=== PATIENT | female | born 1980 | race Caucasian/White ===

== ENCOUNTER 2025-02-15 10:13 | Emergency (ER) | payer BC ==
[2025-02-15] MEDS: HYDROmorphone 1 MG/ML Syringe IVPUSH ONE (11:16)
[2025-02-15] MEDS: Ondansetron 4 MG/2 ML SDV IVPUSH ONE (11:16)
[2025-02-15] MEDS: Ketorolac 30 MG/ML SDV IVPUSH ONE (11:16)
[2025-02-15 11:19] LABS: BASOPHILS ABSOLUTE AUTO 0.03 10^3/uL (0.00-0.10); BASOPHILS PERCENT AUTO 0.4 % (0.0-1.0); EOSINOPHILS ABSOLUTE AUTO 0.24 10^3/uL (0.10-0.30); EOSINOPHILS PERCENT AUTO 2.9 % (1.0-3.0); HEMATOCRIT 43.1 % (37.0-47.0); HEMOGLOBIN 14.1 g/dL (12.0-16.0); IMMATURE GRAN ABSOLUTE AUTO 0.01 10^3/uL (0.00-0.04); IMMATURE GRAN PERCENT AUTO 0.1 % (0.0-0.4); LYMPHOCYTES ABSOLUTE AUTO 2.05 10^3/uL (1.00-4.00); LYMPHOCYTES PERCENT AUTO 24.9 % (20.0-40.0); MEAN CORPUSCULAR HGB CONC 32.7 g/dL (32.0-36.0); MEAN CORPUSCULAR VOLUME 85.5 fL (82.0-92.0); MEAN PLATELET VOLUME 10.1 fL (7.4-10.4); MONOCYTES ABSOLUTE AUTO 0.84 10^3/uL (0.10-0.80); MONOCYTES PERCENT AUTO 10.2 % (2.0-8.0); NEUTROPHILS ABSOLUTE AUTO 5.06 10^3/uL (2.50-7.00); NEUTROPHILS PERCENT AUTO 61.5 % (50.0-70.0); PLATELET COUNT,PLT 352 10^3/uL (150-400); RED BLOOD CELL COUNT 5.04 10^6/uL (3.80-5.50); WHITE BLOOD CELL COUNT,WBC 8.23 10^3/uL (5.00-10.00)
[2025-02-15 11:36] LABS: ALANINE AMINOTRANSFERASE,ALT 21 U/L (14-63); ALBUMIN 3.67 g/dL (3.40-5.00); ALKALINE PHOSPHATASE 55 U/L (46-116); ANION GAP 10.9 mmol/L (5-15); ASPARTATE AMNIOTRANSFERASE,AST 17 U/L (15-37); BILIRUBIN TOTAL 0.4 mg/dL (0.2-1.0); BLOOD UREA NITROGEN,BUN 13 mg/dL (7-18); C-REACTIVE PROTEIN < 0.50 mg/dL (0.00-0.50); CARBON DIOXIDE,CO2 29.8 mmol/L (21.0-32.0); CHLORIDE,CL 101 mmol/L (98-107); CREATININE 0.78 mg/dL (0.51-1.17); ESTIMATED GFR 97 mL/min (>=60); GLUCOSE RANDOM 128 mg/dL (70-140); LIPASE 19 U/L (16-77); POTASSIUM,K 3.7 mmol/L (3.5-5.1); PROTEIN TOTAL,TP 7.3 g/dL (6.4-8.2); SODIUM,NA 138 mmol/L (136-145)
[2025-02-15] MEDS: Sodium Chloride 0.9% 50 ML IV SCH (11:55)
[2025-02-15] MEDS: Iopamidol 755 Mg/ML 100 ML Bottle IV ONE (11:55)
[2025-02-15 12:02] LABS: APPEARANCE,URINE CLEAR (CLEAR); BILIRUBIN,URINE NEGATIVE (NEGATIVE); COLOR,URINE YELLOW (YELLOW); GLUCOSE,URINE NEGATIVE (NEGATIVE); KETONES,URINE TRACE mg/dL (NEGATIVE); LEUKOCYTE ESTERASE,URINE NEGATIVE (NEGATIVE); NITRITE,URINE NEGATIVE (NEGATIVE); OCCULT BLOOD,URINE NEGATIVE (NEGATIVE); PROTEIN,URINE 100 mg/dL (NEGATIVE); UROBILINOGEN,URINE 0.2 E.U./dL (0.2-1.0)
[2025-02-15 12:10] LABS: BACTERIA,URINE RARE /HPF (NONE TO FEW); EPITHELIAL CELLS,URINE RARE /LPF; MUCUS,URINE RARE /LPF (NEGATIVE); RBC,URINE 0-5 /HPF (0-5); WBC,URINE 0-5 /HPF (0-5)
[2025-02-15 14:09] VITALS: BP 143/78; PULSE 90
== END 2025-02-15 14:19 | disposition home or self-care (01) ==
LOC: KA.ED 10:13
DX: R10.11 Right upper quadrant pain (principal); R10.31 Right lower quadrant pain; E10.9 Type 1 diabetes mellitus without complications; Z88.1 Allergy status to other antibiotic agents; Z79.4 Long term (current) use of insulin; Z88.0 Allergy status to penicillin; Z88.8 Allergy status to other drugs, medicaments and biological substances; Z79.82 Long term (current) use of aspirin; Z79.899 Other long term (current) drug therapy
CPT/HCPCS: 74177; 80053; 81001; 81025; 83690; 85025; 86140; 96374; 96375; 99284; J1171; J1885; J2405; J3490; Q9967